=== PATIENT | male | born 1945 | race Caucasian/White ===

== ENCOUNTER → 2018-09-07 | Outpatient (CLI) | payer MEDICARE, BC | LOC: LAB SHORT 14:48 → PLD 14:48 | DX: D48.5 Neoplasm of uncertain behavior of skin (principal) | CPT/HCPCS: 88305 ==

== ENCOUNTER 2019-01-28 18:29 | Emergency (ER) | payer MEDICARE, BC ==
[~2019-01-28] VITALS: Ht 170.2 cm; Wt 113.4 kg
[2019-01-28] MEDS ORDERED: LISI20 PO (18:45)
[2019-01-28] MEDS ORDERED: METF500 PO (18:45)
[2019-01-28] MEDS ORDERED: Aspir 8181 MG PO (18:46)
[2019-01-28] MEDS ORDERED: Amoxicillin500 MG PO (19:31)
== END 2019-01-28 19:42 | disposition home or self-care (01) ==
LOC: ER 18:29
DX: K08.89 Other specified disorders of teeth and supporting structures (principal); I10 Essential (primary) hypertension; E11.9 Type 2 diabetes mellitus without complications; Z79.899 Other long term (current) drug therapy; Z79.84 Long term (current) use of oral hypoglycemic drugs; Z79.82 Long term (current) use of aspirin
CPT/HCPCS: 64400; 99282-25; A9270